=== PATIENT | female | born 1995 | race Caucasian/White ===

== ENCOUNTER 2016-03-13 18:20 | Emergency (ER) | payer SELFPAY ==
[2016-03-13] MEDS ORDERED: OPTIRAY 350 100 ML VIAL HMH IV ONE (18:21)
[2016-03-13] MEDS ORDERED: METOCLOPRAMIDE 10 MG/2 ML VIAL ONE (21:29)
[2016-03-13] MEDS ORDERED: DIPHENHYDRAMINE 50 MG/ML VIAL ONE (21:29)
[2016-03-13] MEDS ORDERED: ONDANSETRON 4 MG VIAL ONE (21:29)
[2016-03-13] MEDS ORDERED: SODIUM CHLORIDE 0.9% 1,000 ML ONE (21:30)
[2016-03-13] MEDS ORDERED: DILAUDID 1 MG/ML AMP ONE ×2 (21:30→23:35)
== END 2016-03-14 00:18 | disposition home or self-care (01) ==
LOC: ER 18:20
CPT/HCPCS: 74177; 96361; 96374; 96375; 96376